=== PATIENT | female | born 1965 | race Caucasian/White ===

== ENCOUNTER → 2020-01-15 | Outpatient (CLI) | payer BC | LOC: COL.LAB 16:41 | DX: M79.604 Pain in right leg (principal) ==

== ENCOUNTER → 2020-01-15 | Outpatient (CLI) | payer BC | LOC: COL.LAB | DX: M79.604 Pain in right leg (principal) ==

== ENCOUNTER → 2021-05-19 | Outpatient (CLI) | payer BC ==
[2021-05-19 17:13] LABS: MUCOUS Present (NOT PRESENT); PH 6 (5-8); SQUAMOUS EPITHELIAL 0-2 /hpf (0-10); URINE APPEARANCE Clear (CLEAR/HAZY); URINE BACTERIA None Seen /hpf (NONE SEEN); URINE BILIRUBIN Negative (NEGATIVE); URINE BLOOD Negative (NEGATIVE); URINE COLOR Yellow (YELLOW); URINE GLUCOSE Negative (NEGATIVE); URINE KETONE Negative (NEGATIVE); URINE LEUKOCYTE ESTERASE Negative (NEGATIVE); URINE NITRATE Negative (NEGATIVE); URINE PROTEIN(semi-quant) Negative (NEGATIVE); URINE RBC 0-2 /hpf (0-2); URINE UROBILINOGEN Negative (NEGATIVE)
[2021-05-19 17:15] LABS: COLLECTION METHOD CLEAN CATCH
== END ==
LOC: COL.LAB 16:46
PROVIDERS: Orthopaedic Surgery
DX: Z01.812 Encounter for preprocedural laboratory examination (principal)